=== PATIENT | female | born 1960 | race Caucasian/White ===

== ENCOUNTER 2020-08-02 17:13 | Emergency (ER) | payer BC ==
--- NOTE | 2020-08-02 17:29 | EDM.PDOC ---
ED HPI GENERAL MEDICAL PROBLEM - General Chief Complaint: Lower Extremity Injury/Pain Stated Complaint: LEFT KNEE PAIN Time Seen by Provider: 08/02/20 17:14 Source of Information: Reports: Patient History Limitations: Reports: No Limitations - History of Present Illness INITIAL COMMENTS - FREE TEXT/NARRATIVE: HISTORY AND PHYSICAL: History of present illness: Patient is a 60-year-old female who presents to the ED today with concern of left knee pain over the past 2 to 3 days. No injury of the knee but states that she has had pain which is worse when she stands or moves her knee. Denies any fall or injury. Denies any prior concerns with her knee. Patient denies any associated symptoms with her knee pain. Patient states she has a history of hypertension and hypothyroidism. Patient denies fever, chills, chest pain, shortness of breath, or cough. Denies headache, neck stiff ness, change in vision, syncope, or near syncope. Denies nausea, vomiting, abdominal pain, diarrhea, constipation, or dysuria. Has not noted any blood in urine or stool. Patient has been eating and drinking appropriately. Review of systems: As per history of present illness and below otherwise all systems reviewed and negative. Past medical history: As per history of present illness and as reviewed below otherwise noncontributory. Surgical history: As per history of present illness and as reviewed below otherwise noncontributory. Social history: See social history for further information Family history: As per history of present illness and as reviewed below otherwise noncontri butory. Physical exam: General: Patient is alert, oriented, and in no acute distress. Patient sitting comfortably on exam table. HEENT: Atraumatic, normocephalic, pupils equal and reactive bilaterally, negative for conjunctival pallor or scleral icterus, mucous membranes moist, TMs normal bilaterally, throat clear, neck supple, nontender, trachea midline. No drooling or trismus noted. No meningeal signs. No hot potato voice noted. Lungs: Clear to auscultation, breath sounds equal bilaterally, chest nontender. Heart: S1S2, regular rate and rhythm without overt murmur Abdomen: Soft, nondistended, nontender. Negative for masses or hepatosplenomegaly. Negative for costovertebral tenderness. Pelvis: Stable nontender. Genitourinary: Deferred. Rectal: Deferred. Skin: Intact, warm, dry. No lesions or rashes noted. Extremities: Patient did ambulate into the ED today but did have pain/limping gait favoring the right leg to minimize weight of the left. Patient does have full ROM of the left knee but does have moderate pain with complete extension or flexion. No erythema or warmth of the left knee. Patient also has pain with both varus and valgus stress of the knee. DP/PT pulses grossly intact with cap refill < 2 seconds. Otherwise, atraumatic, negative for cords or calf pain. Neurovascular unremarkable. Neuro: Awake, alert, oriented. Cranial nerves II through XII unremarkable. Cerebellum unremarkable. Motor and sensory unremarkable throughout. Exam nonfocal. Notes: Signs and symptoms that would prompt return to he ED thoroughly discussed with patient. Discussed the importance for follow up with a primary care provider Voices understanding and is agreeable to plan of care. Denies any further questions or concerns at this time. Diagnostics: Knee XR Therapeutics: Knee immobilizer-to be used for knee stabilization until orthopedic evaluation (Patient has crutches available to her at home) Prescription: None Impression: Left knee pain Plan: 1. You can alternate ibuprofen and Tylenol as directed for pain and discomfort. 2. Follow up with an orthopedic provider as discussed. Return to the ED as needed and as discussed. 3. Use the knee immobilizer and crutches until orthopedic evaluation. Definitive disposition and diagnosis as appropriate pending reevaluation and review of above. L knee Pain Score (Numeric/FACES): 8 - Related Data Allergies Allergy/AdvReac Type Severity Reaction Status Date / Time Penicillins Allergy Other Verified 08/02/20 17:24 Home Meds: Home Meds Levothyroxine 08/02/20 [History] Non-Formulary Medication [NF Drug] 08/02/20 [History] Review of Systems - Review of Systems Review Of Systems: Comprehensive ROS is negative, except as noted in HPI. ED EXAM, GENERAL - Physical Exam Exam: See Below (see dictation) Course - Vital Signs Last Recorded V/S: Last Vital Signs Temp 97.6 F 08/02/20 17:25 Pulse 82 08/02/20 17:25 Resp 18 08/02/20 17:25 BP 121/77 08/02/20 17:25 Pulse Ox 97 08/02/20 17:25 - Orders/Labs/Meds Orders: Active Orders 24 hr Category Date Time Status DME for Discharge [COMM] Stat Oth 08/02/20 18:32 Ordered Departure - Departure Time of Disposition: 18:26 Disposition: Home, Self-Care 01 Clinical Impression: Left knee pain Qualifiers: Chronicity: acute Qualified Code(s): M25.562 - Pain in left knee - Discharge Information Referrals: Duane Gibbs MD [Primary Care Provider] - Forms: ED Department Discharge Additional Instructions: The following information is given to patients seen in the emergency department who are being discharged to home. This information is to outline your options for follow-up care. We provide all patients seen in our emergency department with a follow-up referral. The need for follow-up, as well as the timing and circumstances, are variable depending upon the specifics of your emergency department visit. If you don't have a primary care physician on staff, we will provide you with a referral. We always advise you to contact your personal physician following an emergency department visit to inform them of the circumstance of the visit and for follow-up with them and/or the need for any referrals to a consulting specialist. The emergency department will also refer you to a specialist when appropriate. This referral assures that you have the opportunity for follow-up care with a specialist. All of these measure are taken in an effort to provide you with optimal care, which includes your follow-up. Under all circumstances we always encourage you to contact your private physician who remains a resource for coordinating your care. When calling for follow-up care, please make the office aware that this follow-up is from your recent emergency room visit. If for any reason you are refused follow-up, please contact the [facility] Emergency Department at and asked to speak to the emergency department charge nurse. [facility] [address] [place] [address] [address] [facility] - [facility] Professional Building [address] [place] [address], [address] [place] [address] Dr Mendes, Orthopedist [facility] [address] [place] [address] Dr Lacy - Dr Qureshi - [facility] [address] [place] [address] [facility] [address] [place] [address] 1. You can alternate ibuprofen and Tylenol as directed for pain and discomfort. 2. Follow up with an orthopedic provider as discussed. Return to the ED as needed and as discussed. 3. Use the knee immobilizer and crutches until orthopedic evaluation. Sepsis Event Note (ED) - Focused Exam Vital Signs: Vital Signs Temp Pulse Resp BP Pulse Ox 08/02/20 17:25 97.6 F 82 18 121/77 97 - My Orders Last 24 Hours: My Active Orders 08/02/20 18:32 DME for Discharge [COMM] Stat - Assessment/Plan Last 24 Hours: My Active Orders 08/02/20 18:32 DME for Discharge [COMM] Stat
--- NOTE | 2020-08-02 18:02 | CR ---
Indication: Left knee pain. Technique: Three views of the left knee. Comparison: None Findings: Moderate narrowing of the medial compartment is identified. Spurring of the tibial spines is identified. Narrowing of the patellofemoral articulation is identified. A small joint effusion is seen. Impression: Degenerative change. Dictated by Melania Kenny MD @ Aug 02 2020 6:00PM Signed by Dr. Melania Kenny @ Aug 02 2020 6:01PM
== END 2020-08-02 18:54 | disposition home or self-care (01) ==
LOC: MW.ED 17:13
DX: M25.562 Pain in left knee (principal); Z88.0 Allergy status to penicillin
CPT/HCPCS: 73562-26-LT; 73562-LT; 99283